=== PATIENT | female | born 1960 | race Caucasian/White ===

== ENCOUNTER 2024-11-27 12:41 | Observation (INO) ==
[2024-11-27 12:52] VITALS: BMI 22.8
[2024-11-27 13:09] LABS: ABG ALLEN TEST POS; ABG BASE EXCESS 5.9 mmol/L (-2.0-2.0); ABG HCO3 29.7 mmol/L (22-26); ABG OXYGEN SATURATION 88.0 % (90-100); ABG PCO2 39.0 mmHg (35.0-45.0); ABG PH 7.490 (7.35-7.45); ABG PO2 49.0 mmHg (80.0-100.0)
[2024-11-27 13:20] LABS: MEAN PLATELET VOLUME 8.7 fL (7.4-11.0); RED CELL DISTRIBUTION WIDTH 14.1 % (11.6-16.5)
[2024-11-27 13:41] LABS: COR CA(FOR HYPOALB) 9.1 mg/dL (8.5-10.1); CREATININE 0.58 mg/dL (0.55-1.02); eGFR NON BLACK RACES > 60 (>60)
[2024-11-27 13:51] LABS: INR 0.97 (0.8-1.3)
--- NOTE | 2024-11-27 14:04 | DR.GENAD ---
HPI Time Seen Time Seen by Provider: 11/27/24 12:59 PCP Primary Care Physician: franca Complaint/Symptoms Chief Complaint Doctors Comments: Patient with complaint of shortness of breath and cough. Patient states he has been going on for about 2 weeks and she has followed up with her PCP and has had to rounds of steroids and treatment. Patient has continued to try smoking but states she has greatly diminished because she gets very short of breath while she tries to smoke and is difficult for her to live a cigarette. Patient denies fever. Chief Complaint:: shourtness of breath and feeling like someone is squeezing around my chest. this was last night. has been coughing up clear foam since for a couple of weeks. this has been ongoing for about 4 weeks. Self Treatment fo Chief Complaint: seen dr. gomez but not improved. states she did not get any lasix from the pharmacy just albuterol COVID-19 Coronavirus risk:travel/contact w/high risk person: No Has patient experienced Coronavirus symptoms: Yes Coronavirus symptoms experienced: Coughing and Shortness of Breath Source History Provided: Patient Mode of Arrival Mode of Arrival: Wheelchair Timing Onset of Chief Complaint: 11/26/24 PMH PMH Past Medical History: Yes Past Medical History: COPD Past Surgical History: Yes Surgical History: Hysterectomy and Ortho Surgery Family History History of Family Medical Conditions: Yes Family Medical History: Diabetes Mellitus, [place], Coronary Artery Disease, Heart Failure and Hypertension Social History Type of Tobacco Use: Cigarettes Alcohol Use: None Do you use any recreational Drugs:: No Lives With: Alone Lives Where: Home Travel Risk Coronavirus risk:travel/contact w/high risk person: No Has patient experienced Coronavirus symptoms: Yes Coronavirus symptoms experienced: Coughing and Shortness of Breath Infectious screening In the last 2 months have you had wt loss of >10#?: NO Have you had fever, night sweats or hemotysis?: No Have you traveled outside the country in the last 6 months?: No Isolation: Respiratory ROS Review of Systems Constitutional: No Symptoms Reported; negative Fever Eyes: No Symptoms Reported ENTM: No Symptoms Reported Respiratoy: See HPI, Non-Productive Cough, Short of Breath and Wheezing Cardiovascular: No Symptoms Reported; negative Chest Pain, Edema, Palpitations or Syncope Gastrointestinal/Abdominal: No Symptoms Reported Genitourinary: No Symptoms Reported Neurological: No Symptoms Reported Musculoskeletal: No Symptoms Reported Integumentary: No Symptoms Reported Hematologic/Lymphatic: No Symptoms Reported Endocrine: No Symptoms Reported Psychiatric: No Symptoms Reported All Other Systems: Reviewed and Negative PE Vital Signs Vitals: Vital Signs Temperature 98.2 F Pulse Rate 86 Pulse Rate 81 Pulse Rate 85 Pulse Rate 87 Pulse Rate 79 Pulse Rate 86 Pulse Rate 81 Pulse Rate 85 Pulse Rate 87 Pulse Rate 83 Pulse Rate 90 Pulse Rate 82 Pulse Rate 83 Pulse Rate 92 Respiratory Rate 39 Respiratory Rate 41 Respiratory Rate 32 Respiratory Rate 34 Respiratory Rate 43 Respiratory Rate 48 Respiratory Rate 44 Respiratory Rate 41 Respiratory Rate 41 Respiratory Rate 40 Respiratory Rate 37 Respiratory Rate 34 Respiratory Rate 24 Blood Pressure 176/81 Blood Pressure 152/74 Blood Pressure 156/80 Blood Pressure 157/85 Blood Pressure 156/76 Blood Pressure 166/80 O2 Sat by Pulse Oximetry 93 O2 Sat by Pulse Oximetry 93 O2 Sat by Pulse Oximetry 93 O2 Sat by Pulse Oximetry 93 O2 Sat by Pulse Oximetry 96 O2 Sat by Pulse Oximetry 96 O2 Sat by Pulse Oximetry 93 O2 Sat by Pulse Oximetry 94 O2 Sat by Pulse Oximetry 94 O2 Sat by Pulse Oximetry 92 O2 Sat by Pulse Oximetry 92 O2 Sat by Pulse Oximetry 89 O2 Sat by Pulse Oximetry 90 O2 Sat by Pulse Oximetry 92 General Limitations: No Limitations General Appearance: Alert and In No Apparent Distress Head Head Exam: Normal Inspection Eyes Eye exam: Normal Appearance ENT ENT Exam: Normal Exam External Ear Exam: Normal External Inspection TM/Canal Exam: Bilateral: Normal Nose Exam: Normal Nose Exam Mouth Exam: Normal Inspection Throat Exam: Normal Inspection Neck Neck Exam: Normal Inspection Chest Chest Inspection: Normal Inspection Respiratory Respiratory Exam: Other (Mild wheezing bilaterally. Slightly diminished on right lower lobe.) Cardiovascular Cardiovascular Exam: Regular Rate and Normal Rhythm Extremities Extremities Exam: Normal Inspection Back Back Exam: Normal Inspection Neurologic Neurological Exam: Alert and Oriented X3 Psychiatric Psychiatric Exam: Normal Affect and Normal Mood Skin Skin Exam: Warm, Dry, Intact and Normal Color COURSE Treatment Treatment: COPD exacerbation with failed outpatient treatment. Discussed results of workup with patient. Patient has been hypoxic and ER but improved with 2 L nasal cannula. Consultation Consultation Comments: Discussed case with Dr. Gomez and he is agreeable to admission. ROR Labs Reviewed Laboratory Results Reviewed?: Yes 11/27/24 13:07 11/27/24 13:07 Laboratory: WBC 14.3 X10^3/uL (3.6-10.0) H 11/27/24 13:07 RBC 4.80 X10^6/uL (3.5-5.4) 11/27/24 13:07 Hgb 13.6 g/dL (12.0-16.0) 11/27/24 13:07 Hct 41.5 % (36.0-47.0) 11/27/24 13:07 MCV 86.5 fL (80.0-100.0) 11/27/24 13:07 MCH 28.4 pg (27.0-34.0) 11/27/24 13:07 MCHC 32.8 g/dL (33.0-35.0) L 11/27/24 13:07 RDW 14.1 % (11.6-16.5) 11/27/24 13:07 Plt Count 260 X10^3/uL (150.0-450.0) 11/27/24 13:07 MPV 8.7 fL (7.4-11.0) 11/27/24 13:07 Neut % (Auto) 83.2 % (42.0-75.0) H 11/27/24 13:07 Lymph % (Auto) 10.0 % (21.0-51.0) L 11/27/24 13:07 Dunn % (Auto) 5.6 % (0.0-13.0) 11/27/24 13:07 Eos % (Auto) 0.5 % (0.9-2.9) L 11/27/24 13:07 Baso % (Auto) 0.7 % (0.2-1.0) 11/27/24 13:07 Neut # (Auto) 11.9 x10^3/uL (2.2-4.8) H 11/27/24 13:07 Lymph # (Auto) 1.4 X10^3/uL (1.3-2.9) 11/27/24 13:07 Dunn # (Auto) 0.8 x10^3/uL (0.3-0.8) 11/27/24 13:07 Eos # (Auto) 0.1 x10^3/uL (0.0-0.2) 11/27/24 13:07 Baso # (Auto) 0.1 X10^3/uL (0.0-0.1) 11/27/24 13:07 Absolute Nucleated RBC 0.0 /100WBC 11/27/24 13:07 PT 13.0 SECONDS (11.8-14.3) 11/27/24 13:07 INR Target Range - 11/27/24 13:07 INR 0.97 (0.8-1.3) 11/27/24 13:07 APTT 28.8 SECONDS (22.9-36.5) 11/27/24 13:07 PTT Comment - 11/27/24 13:07 D-Dimer < 0.27 ug/ml (0.0-0.57) 11/27/24 13:07 Sample Site Lrad 11/27/24 13:05 ABG pH 7.490 (7.35-7.45) H 11/27/24 13:05 ABG pCO2 39.0 mmHg (35.0-45.0) 11/27/24 13:05 ABG pO2 49.0 mmHg (80.0-100.0) L* 11/27/24 13:05 ABG HCO3 29.7 mmol/L (22-26) H 11/27/24 13:05 ABG O2 Saturation 88.0 % (90-100) L 11/27/24 13:05 ABG Base Excess 5.9 mmol/L (-2.0-2.0) H 11/27/24 13:05 Jordan Test Pos 11/27/24 13:05 A-a Gradient 52.0 mmHg 11/27/24 13:05 FiO2 21.0 11/27/24 13:05 Blood Gas Comments Aníbal well ms 11/27/24 13:05 Sodium 141 mmol/L (136-145) 11/27/24 13:07 Corrected Sodium TNP 11/27/24 13:07 Potassium 3.6 mmol/L (3.5-5.1) 11/27/24 13:07 Chloride 104 mmol/L (98-107) 11/27/24 13:07 Carbon Dioxide 33.0 mmol/L (21-32) H 11/27/24 13:07 BUN 13 mg/dL (7-18) 11/27/24 13:07 Creatinine 0.58 mg/dL (0.55-1.02) 11/27/24 13:07 Est GFR (MDRD) Af Amer > 60 (>60) 11/27/24 13:07 Est GFR (MDRD) Non-Af > 60 (>60) 11/27/24 13:07 Glucose 100 mg/dL (65-99) H 11/27/24 13:07 Calcium 8.5 mg/dL (8.5-10.1) 11/27/24 13:07 Corrected Calcium 9.1 mg/dL (8.5-10.1) 11/27/24 13:07 Magnesium 2.1 mg/dL (2.0-2.9) 11/27/24 13:07 Total Bilirubin 0.50 mg/dL (0.2-1.0) 11/27/24 13:07 AST 12 Units/L (15-37) L 11/27/24 13:07 ALT 21 Units/L (12-78) 11/27/24 13:07 Alkaline Phosphatase 117 Units/L (46-116) H 11/27/24 13:07 Troponin I High Sens 6.5 ng/L (4.0-60.0) 11/27/24 13:07 B-Natriuretic Peptide 58.5 pg/mL (0-79) 11/27/24 13:07 Total Protein 7.1 g/dL (6.4-8.2) 11/27/24 13:07 Albumin 3.3 g/dL (3.4-5.0) L 11/27/24 13:07 Globulin 3.8 g/dL (2.5-4.5) 11/27/24 13:07 Albumin/Globulin Ratio 0.9 Ratio (1.1-2.1) L 11/27/24 13:07 Other Results Comments: Name: [facility]#: [id number] : 1960 Sex: F Location: ER Order Number(s): [id number] Procedure(s):CHEST CT W/O CON Ordering Physician: Nilay Helm Primary Care: Francisco Gomez MD Service Date: 11/27/24 Service Time: 1259 EXAM: CT chest without contrast HISTORY: Shortness of breath TECHNIQUE: Axial noncontrast images with coronal and sagittal reformats. Dose reduction procedures were used with mA/kv adjusted for body size. This examination is limited due to the lack of intravenous contrast. The examination was performed unenhanced at the sole direction of the ordering caregiver. Radiology was afforded no input into the method of performance of this examination. COMPARISON: None FINDINGS: Exam ination of the mediastinum demonstrated no evidence for mediastinal mass, enlarged mediastinal or enlarged hilar adenopathy but only to the limitations of an unenhanced examination. Calcific atherosclerotic changes present in a not significantly dilated proximal aortic arch. Heart size is normal. No pleural effusions are identified. No chest wall or axillary abnormalities identified. Those portions of the upper abdominal organs visualized appeared within normal limits to the limitations of an examination performed without intravenous and without oral contrast. There is a suggestion of possible cholelithiasis which could be confirmed or excluded sonographically. Spinal osteopenia is present. There is an old compression fracture of T12. There is a benign hemangiomatous change in L1. Examination of the lung maravilla demonstrated no pulmonary masses, alveolar infiltrates, areas of consolidation, bronchiectasis, or peribronchial thickening. No significant noncalcified pulmonary nodules are identified. 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 THIS IS AN ELECTRONICALLY VERIFIED FINAL REPORT 11/27/2024 2:54 PM - Electronically signed by Rick Schneider MD Opioid Opioid Risk Tool Age (Pankaj box if 16-45): No History of Preadolescent Sexual Abuse: No Total: 0 Total Score Risk Category: Low Risk Copyright: Teddy DOWELL predicting aberrant behaviors Discharge Plan Diagnosis Discharge Problem: COPD with exacerbation, Hypoxia Discharge Plan Patient Disposition: 09 ADMITTED INPATIENT Condition: Stable Prescriptions: No Action ipratropium-albuterol 0.5 mg-3 mg(2.5 mg base)/3 mL solution for nebulization 3 ml inhalation Q4-6H PRN (Reason: wheezing) Qty: 180 2RF furosemide [Lasix] 20 mg tablet 20 mg PO QDAY 5 Days Qty: 5 0RF albuterol sulfate 90 mcg/actuation HFA aerosol inhaler 2 puff inhalation Q4-6H PRN (Reason: shortness of breath or wheezing) Qty: 8.5 3RF Health Concerns: Post Hospitalization: new medications and changes needed to prevent readmission or further decline. Pt educated and given instructions on all concerns. Plan of Treatment: Continue with present treatment and follow up plan. Pt is to keep follow up appointment as instructed and take medications as ordered. Orders to Discharge Patient Discharge Orders: Transfer (Routine); Ordered 11/27/24 Ordered By: Nilay Helm Follow ups/Referrals Follow ups/Referrals: Francisco Gomez MD [Primary Care Provider, MEDICAL] - 3 days Instructions Stand Alone Forms: Find Help Web Site, Post Hospital Follow Up Care Print Language: CHINESE
--- NOTE | 2024-11-27 14:58 | CT ---
EXAM: CT chest without contrast HISTORY: Shortness of breath TECHNIQUE: Axial noncontrast images with coronal and sagittal reformats. Dose reduction procedures were used with mA/kv adjusted for body size. This examination is limited due to the lack of intravenous contrast. The examination was performed unenhanced at the sole direction of the ordering caregiver. Radiology was afforded no input into the method of performance of this examination. COMPARISON: None FINDINGS: Exam ination of the mediastinum demonstrated no evidence for mediastinal mass, enlarged mediastinal or enlarged hilar adenopathy but only to the limitations of an unenhanced examination. Calcific atherosclerotic changes present in a not significantly dilated proximal aortic arch. Heart size is normal. No pleural effusions are identified. No chest wall or axillary abnormalities identified. Those portions of the upper abdominal organs visualized appeared within normal limits to the limitations of an examination performed without intravenous and without oral contrast. There is a suggestion of possible cholelithiasis which could be confirmed or excluded sonographically. Spinal osteopenia is present. There is an old compression fracture of T12. There is a benign hemangiomatous change in L1. Examination of the lung maravilla demonstrated no pulmonary masses, alveolar infiltrates, areas of consolidation, bronchiectasis, or peribronchial thickening. No significant noncalcified pulmonary nodules are identified. 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 THIS IS AN ELECTRONICALLY VERIFIED FINAL REPORT 11/27/2024 2:54 PM - Electronically signed by Rick Schneider MD
[2024-11-27] MEDS: DUONEB 0.5 MG/3 MG (3 mL) NEB ONE ×2 (15:39→17:06)
[2024-11-27] MEDS: LEVAQUIN PREMIX IV 750 MG 750 MG/150 ML BAG IV ONE (15:52)
[2024-11-27] MEDS ORDERED: TYLENOL 325 MG TAB PO PRN (16:53)
[2024-11-27] MEDS ORDERED: ULTRAM PO PRN (16:53)
[2024-11-27] MEDS ORDERED: NORCO 5/325 MG TAB PO PRN (16:53)
[2024-11-27] MEDS: DUONEB 0.5 MG/3 MG (3 mL) NEB SCH (16:54)
[2024-11-27] MEDS ORDERED: DUONEB 0.5 MG/3 MG (3 mL) NEB SCH (17:00)
[2024-11-27] MEDS: PULMICORT NEB TX 0.5 MG NEB SCH (20:26)
[2024-11-27] MEDS: LOVENOX INJ 40 MG SYR SC SCH (21:45)
[2024-11-28] MEDS: PHARMACY CONSULT XX SCH (04:09)
[2024-11-28 04:59] LABS: COR NA(FOR HYPERGLY) 145 mmol/L (136-145); CREATININE 0.79 mg/dL (0.55-1.02); MEAN PLATELET VOLUME 9.3 fL (7.4-11.0); RED CELL DISTRIBUTION WIDTH 14.1 % (11.6-16.5); eGFR NON BLACK RACES > 60 (>60)
[2024-11-28 05:10] LABS: PLATELET MORPHOLOGY COMMENT NORMAL (NORMAL)
--- NOTE | 2024-11-28 07:16 | RAD ---
EXAMINATION: CHEST, 1 VIEW HISTORY: COPD; COPD SX: HYST, ORTHO . COMPARISON STUDY: Chest x-ray 12/19/2021 TECHNIQUE: Single portable AP view of the chest FINDINGS: Subtle patchy alveolar infiltrate left pulmonary base. Heart size and pulmonary vascular pattern appear normal. Bones are intact. Slight curvature thoracic spine convexity toward the right. IMPRESSION: Patchy infiltrate left pulmonary base. THIS IS AN ELECTRONICALLY VERIFIED FINAL REPORT 11/28/2024 7:13 AM - Electronically signed by Gi Gilliam MD
[2024-11-28] MEDS: LASIX PO SCH (09:39)
--- NOTE | 2024-11-28 09:59 | DR.H&P ---
H&P History & Physical for Day of: H&P Date: 11/28/24 Chief Complaint Chief Complaint: cough, dyspnea History of Present Illness History of Present Illness: Patient is a 64-year-old female with a past medical history of COPD presented with worsening respiratory symptoms including shortness of breath and cough. Patient has been treated outpatient for COPD exacerbation for the past few weeks with steroids and antibiotics. She reports worsening symptoms yesterday so came to the ER. ER workup showed hypoxia on ABG with PO2 49. She was initially placed on BiPAP and admitted to the ICU. She was started on IV antibiotics, fluids and Solu-Medrol. She is feeling better this morning. She is currently on 4 L nasal cannula. She does not use oxygen at home. Chest x-ray this morning does show a left-sided pneumonia. Labs/imaging reviewed: - WBC 10.3 hemoglobin 14 potassium 4.1 creatinine 0.79 - Chest x-ray reviewed - AIT pending Plan: Admit to ICU for closer monitoring. Wean O2 as tolerated. BiPAP as needed. Continue IV antibiotics and steroids. Will taper Solu-Medrol to 80 mg Q8. Continue bronchodilators, IS. Resume home medications. Follow pending cultures. Replace electrolytes as per protocol. Monitor a.m. labs and imaging. Time spent for clinical assessment, reviewing labs/imaging, physical exam, decision making and documentation greater than 45 mins. Past Medical History Past Medical History: COPD Past Surgical History Surgical History: Hysterectomy and Ortho Surgery Family History Family Medical History: Diabetes Mellitus, [place], Coronary Artery Disease, Heart Failure and Hypertension Social History Does patient currently use any type of tobacco product: Yes Type of Tobacco Use: Cigarettes Does any household member use tobacco: Yes Alcohol Use: None Drug Use: None Allergies Allergies Allergy/AdvReac Type Severity Reaction Status Date / Time No Known Drug Allergies Allergy Unknown Unverified 11/27/24 16:54 Labs 11/28/24 04:24 11/28/24 04:24 Labs: Laboratory WBC 10.3 X10^3/uL (3.6-10.0) H 11/28/24 04:24 RBC 4.90 X10^6/uL (3.5-5.4) 11/28/24 04:24 Hgb 14.3 g/dL (12.0-16.0) 11/28/24 04:24 Hct 42.2 % (36.0-47.0) 11/28/24 04:24 MCV 86.1 fL (80.0-100.0) 11/28/24 04:24 MCH 29.2 pg (27.0-34.0) 11/28/24 04:24 MCHC 33.9 g/dL (33.0-35.0) 11/28/24 04:24 RDW 14.1 % (11.6-16.5) 11/28/24 04:24 Plt Count 257 X10^3/uL (150.0-450.0) 11/28/24 04:24 Plt Count Comment Adequate (ADEQUATE) 11/28/24 04:24 MPV 9.3 fL (7.4-11.0) 11/28/24 04:24 Neut % (Auto) 95.1 % (42.0-75.0) H 11/28/24 04:24 Lymph % (Auto) 3.8 % (21.0-51.0) L 11/28/24 04:24 Piatt % (Auto) 1.0 % (0.0-13.0) 11/28/24 04:24 Eos % (Auto) 0.0 % (0.9-2.9) L 11/28/24 04:24 Baso % (Auto) 0.1 % (0.2-1.0) L 11/28/24 04:24 Neut # (Auto) 9.8 x10^3/uL (2.2-4.8) H 11/28/24 04:24 Lymph # (Auto) 0.4 X10^3/uL (1.3-2.9) L 11/28/24 04:24 Piatt # (Auto) 0.1 x10^3/uL (0.3-0.8) L 11/28/24 04:24 Eos # (Auto) 0.0 x10^3/uL (0.0-0.2) 11/28/24 04:24 Baso # (Auto) 0.0 X10^3/uL (0.0-0.1) 11/28/24 04:24 Absolute Nucleated RBC 0.1 /100WBC 11/28/24 04:24 Total Counted 100 11/28/24 04:24 Neutrophils % (Manual) 96 % (39-76) H 11/28/24 04:24 Lymphocytes % (Manual) 3 % (13-43) L 11/28/24 04:24 Monocytes % (Manual) 1 % (4-9) L 11/28/24 04:24 Plt Morphology Comment Normal (NORMAL) 11/28/24 04:24 RBC Morphology Normal (NORMAL) 11/28/24 04:24 PT 13.0 SECONDS (11.8-14.3) 11/27/24 13:07 INR Target Range - 11/27/24 13:07 INR 0.97 (0.8-1.3) 11/27/24 13:07 APTT 28.8 SECONDS (22.9-36.5) 11/27/24 13:07 PTT Comment - 11/27/24 13:07 D-Dimer < 0.27 ug/ml (0.0-0.57) 11/27/24 13:07 Sample Site Lrad 11/27/24 13:05 ABG pH 7.490 (7.35-7.45) H 11/27/24 13:05 ABG pCO2 39.0 mmHg (35.0-45.0) 11/27/24 13:05 ABG pO2 49.0 mmHg (80.0-100.0) L* 11/27/24 13:05 ABG HCO3 29.7 mmol/L (22-26) H 11/27/24 13:05 ABG O2 Saturation 88.0 % (90-100) L 11/27/24 13:05 ABG Base Excess 5.9 mmol/L (-2.0-2.0) H 11/27/24 13:05 Jordan Test Pos 11/27/24 13:05 A-a Gradient 52.0 mmHg 11/27/24 13:05 FiO2 21.0 11/27/24 13:05 Blood Gas Comments Aníbal well ms 11/27/24 13:05 Sodium 143 mmol/L (136-145) 11/28/24 04:24 Corrected Sodium 145 mmol/L (136-145) 11/28/24 04:24 Potassium 4.1 mmol/L (3.5-5.1) 11/28/24 04:24 Chloride 105 mmol/L (98-107) 11/28/24 04:24 Carbon Dioxide 32.3 mmol/L (21-32) H 11/28/24 04:24 BUN 13 mg/dL (7-18) 11/28/24 04:24 Creatinine 0.79 mg/dL (0.55-1.02) 11/28/24 04:24 Est GFR (MDRD) Af Amer > 60 (>60) 11/28/24 04:24 Est GFR (MDRD) Non-Af > 60 (>60) 11/28/24 04:24 Glucose 184 mg/dL (65-99) H 11/28/24 04:24 Calcium 8.9 mg/dL (8.5-10.1) 11/28/24 04:24 Corrected Calcium 9.1 mg/dL (8.5-10.1) 11/27/24 13:07 Magnesium 2.1 mg/dL (2.0-2.9) 11/27/24 13:07 Total Bilirubin 0.50 mg/dL (0.2-1.0) 11/27/24 13:07 AST 12 Units/L (15-37) L 11/27/24 13:07 ALT 21 Units/L (12-78) 11/27/24 13:07 Alkaline Phosphatase 117 Units/L (46-116) H 11/27/24 13:07 Troponin I High Sens 6.5 ng/L (4.0-60.0) 11/27/24 13:07 B-Natriuretic Peptide 58.5 pg/mL (0-79) 11/27/24 13:07 Total Protein 7.1 g/dL (6.4-8.2) 11/27/24 13:07 Albumin 3.3 g/dL (3.4-5.0) L 11/27/24 13:07 Globulin 3.8 g/dL (2.5-4.5) 11/27/24 13:07 Albumin/Globulin Ratio 0.9 Ratio (1.1-2.1) L 11/27/24 13:07 Review of Systems Constitutional: Weakness and Malaise Eyes: No Symptoms Reported ENT: No Symptoms Reported Respiratory: Cough, SOB with Excertion and Sputum Cardiovascular: No Symptoms Reported Gastrointestinal: No Symptoms Reported Genitourinary: No Symptoms Reported Musculoskeletal: No Symptoms Reported Skin: No Symptoms Reported Neurological: No Symptoms Reported Physical Exam Vital Signs: Vital Signs Temperature 98.3 F Pulse Rate 69 Pulse Rate 69 Pulse Rate 72 Pulse Rate 70 Pulse Rate 75 Pulse Rate 80 Pulse Rate 73 Blood Pressure 115/58 Blood Pressure 113/59 Blood Pressure 114/62 Blood Pressure 114/56 Blood Pressure 126/62 O2 Sat by Pulse Oximetry 96 O2 Sat by Pulse Oximetry 96 O2 Sat by Pulse Oximetry 94 O2 Sat by Pulse Oximetry 93 O2 Sat by Pulse Oximetry 92 O2 Sat by Pulse Oximetry 90 O2 Sat by Pulse Oximetry 96 Oriented: Normal Throat: Dry Respiratory: Rhonchi Throughout Cardiovascular: Normal Auscultation: Bowel Sounds: Normal Palpation: Normal Tenderness: Normal Skin: Normal Musculoskeletal: Normal Psychiatric: Normal Mood Description: Calm Affect: Normal Speech Pattern: Clear and Appropriate Assessment/Plan (1) Hypoxia: Status: Acute (2) COPD with exacerbation: Status: Acute (3) Pneumonia: Qualifiers: Pneumonia type: due to unspecified organism Laterality: left Lung location: lower lobe of lung Qualified Code(s): J18.9 - Pneumonia, unspecified organism Status: Acute (4) Chronic obstructive pulmonary disease: Qualifiers: COPD type: unspecified COPD Qualified Code(s): J44.9 - Chronic obstructive pulmonary disease, unspecified Status: Chronic (5) Hyperlipidemia: Qualifiers: Hyperlipidemia type: mixed hyperlipidemia Qualified Code(s): E78.2 - Mixed hyperlipidemia Status: Chronic (6) Tobacco use: Status: Chronic Review H&P Reviewed: Yes Patient was examined?: Yes
[2024-11-28] MEDS: LEVAQUIN PREMIX IV 750 MG 750 MG/150 ML BAG IV SCH (15:30)
[2024-11-29 05:09] LABS: MEAN PLATELET VOLUME 9.5 fL (7.4-11.0); RED CELL DISTRIBUTION WIDTH 14.3 % (11.6-16.5)
[2024-11-29 05:21] LABS: COR CA(FOR HYPOALB) 9.5 mg/dL (8.5-10.1); COR NA(FOR HYPERGLY) 144 mmol/L (136-145); CREATININE 0.64 mg/dL (0.55-1.02); eGFR NON BLACK RACES > 60 (>60)
[2024-11-29 05:25] LABS: PLATELET MORPHOLOGY COMMENT NORMAL (NORMAL)
[2024-11-29 07:09] VITALS: TEMP 98.2
[2024-11-29 09:02] VITALS: BP 121/58; PULSE 89; RESP 18; O2SAT 94
--- NOTE | 2024-11-30 11:30 | W.DIS.FURT ---
Summary of Discharge Discharge Summary of Date Date of Exam: 11/29/24 Admission Date Date of Admission: 11/27/24 Admission Diagnosis Patient Problems (Updated 11/28/24 @ 09:58 by Sujatha Gonzalez MD) Hypoxia (Acute) R09.02 COPD with exacerbation (Acute) J44.1 Hospital Course: Patient is a 64-year-old female with a past medical history of COPD presented with worsening respiratory symptoms including shortness of breath and cough. Patient has been treated outpatient for COPD exacerbation for the past few weeks with steroids and antibiotics. She reports worsening symptoms yesterday so came to the ER. ER workup showed hypoxia on ABG with PO2 49. She was initially placed on BiPAP and admitted to the ICU. She was started on IV antibiotics, fluids and Solu-Medrol. She was also on bronchodilators. She was transitioned to 4 L nasal cannula. She does not use oxygen at home. Repeat chest x-ray did show possible pneumonia. Her labs were monitored daily and electrolytes replaced as needed. RT was consulted for home O2 eval, patient did not require any oxygen with ambulation. She was feeling better the following day and wanted to go home. She does have help at home. She did not require home oxygen. AIT showed rhinovirus. She was stable to be discharged home on p.o. antibiotics and steroids. She will follow-up with PCP as scheduled. Vital Signs: Vital Signs (72 hours) 11/27/24 12:45 11/27/24 12:58 11/27/24 13:00 Temperature 98.2 F Pulse Rate 92 H 83 Respiratory Rate 24 34 H Blood Pressure 166/80 156/76 O2 Sat by Pulse Oximetry 92 L 90 L Oxygen Delivery Method Room Air Oxygen Flow Rate FIO2% 11/27/24 13:00 11/27/24 13:15 11/27/24 13:30 Temperature Pulse Rate 82 90 83 Respiratory Rate 37 H 40 H 41 H Blood Pressure O2 Sat by Pulse Oximetry 89 L 92 L 92 L Oxygen Delivery Method Oxygen Flow Rate FIO2% 11/27/24 13:30 11/27/24 13:45 11/27/24 14:10 Temperature Pulse Rate 87 85 Respiratory Rate 41 H Blood Pressure 157/85 O2 Sat by Pulse Oximetry 94 L 94 L Oxygen Delivery Method Oxygen Flow Rate FIO2% 11/27/24 14:15 11/27/24 14:30 11/27/24 14:45 Temperature Pulse Rate 81 86 79 Respiratory Rate 44 H 48 H 43 H Blood Pressure O2 Sat by Pulse Oximetry 93 L 96 96 Oxygen Delivery Method Oxygen Flow Rate FIO2% 11/27/24 14:59 11/27/24 14:59 11/27/24 15:00 Temperature Pulse Rate 87 85 Respiratory Rate 34 H 32 H Blood Pressure 156/80 O2 Sat by Pulse Oximetry 93 L 93 L Oxygen Delivery Method Oxygen Flow Rate FIO2% 11/27/24 15:00 11/27/24 15:15 11/27/24 15:30 Temperature Pulse Rate 81 86 Respiratory Rate 41 H 39 H Blood Pressure 152/74 O2 Sat by Pulse Oximetry 93 L 93 L Oxygen Delivery Method Oxygen Flow Rate FIO2% 11/27/24 15:30 11/27/24 15:47 11/27/24 15:49 Temperature 98.2 F Pulse Rate 86 Respiratory Rate Blood Pressure 176/81 177/74 O2 Sat by Pulse Oximetry 96 Oxygen Delivery Method Oxygen Flow Rate FIO2% 11/27/24 15:49 11/27/24 15:55 11/27/24 16:00 Temperature Pulse Rate 86 Respiratory Rate 25 H Blood Pressure 159/70 O2 Sat by Pulse Oximetry 97 Oxygen Delivery Method Nasal Cannula Oxygen Flow Rate 2 FIO2% 11/27/24 16:00 11/27/24 16:18 11/27/24 16:20 Temperature Pulse Rate 86 89 84 Respiratory Rate 23 22 Blood Pressure O2 Sat by Pulse Oximetry 91 L 92 L 93 L Oxygen Delivery Method Oxygen Flow Rate FIO2% 11/27/24 16:20 11/27/24 16:22 11/27/24 16:30 Temperature Pulse Rate 87 Respiratory Rate 23 Blood Pressure 157/88 O2 Sat by Pulse Oximetry 94 L Oxygen Delivery Method Nasal Cannula Oxygen Flow Rate 2 FIO2% 28 11/27/24 16:45 11/27/24 16:54 11/27/24 17:00 Temperature Pulse Rate 82 93 H 86 Respiratory Rate 22 23 Blood Pressure O2 Sat by Pulse Oximetry 92 L 93 L 99 Oxygen Delivery Method Oxygen Flow Rate FIO2% 11/27/24 17:00 11/27/24 17:00 11/27/24 17:00 Temperature Pulse Rate 86 Respiratory Rate 22 Blood Pressure 155/79 155/79 O2 Sat by Pulse Oximetry 99 Oxygen Delivery Method Oxygen Flow Rate FIO2% 11/27/24 17:15 11/27/24 17:30 11/27/24 17:45 Temperature Pulse Rate 93 H 88 102 H Respiratory Rate 23 21 Blood Pressure O2 Sat by Pulse Oximetry 91 L 92 L 93 L Oxygen Delivery Method Oxygen Flow Rate FIO2% 11/27/24 18:00 11/27/24 18:00 11/27/24 18:00 Temperature Pulse Rate 91 H Respiratory Rate 22 Blood Pressure 130/62 O2 Sat by Pulse Oximetry 94 L Oxygen Delivery Method Nasal Cannula Oxygen Flow Rate 3 FIO2% 32 11/27/24 18:50 11/27/24 18:59 11/27/24 19:00 Temperature Pulse Rate 91 H Respiratory Rate 33 H Blood Pressure 146/67 O2 Sat by Pulse Oximetry 93 L Oxygen Delivery Method Nasal Cannula Nasal Cannula Oxygen Flow Rate 3 3 FIO2% 11/27/24 20:00 11/27/24 20:00 11/27/24 20:28 Temperature 98.2 F Pulse Rate 86 Respiratory Rate 34 H Blood Pressure 149/67 O2 Sat by Pulse Oximetry 90 L Oxygen Delivery Method Nasal Cannula Nasal Cannula Oxygen Flow Rate 3 3 FIO2% 32 11/27/24 20:28 11/27/24 21:00 11/27/24 21:00 Temperature Pulse Rate 83 85 Respiratory Rate Blood Pressure 123/60 O2 Sat by Pulse Oximetry 95 91 L Oxygen Delivery Method Nasal Cannula Oxygen Flow Rate 3 FIO2% 11/27/24 21:32 11/27/24 22:01 11/27/24 22:01 Temperature Pulse Rate 85 Respiratory Rate Blood Pressure 139/64 O2 Sat by Pulse Oximetry 95 Oxygen Delivery Method Nasal Cannula Nasal Cannula Oxygen Flow Rate 4 4 FIO2% 36 11/27/24 23:00 11/27/24 23:00 11/28/24 00:00 Temperature Pulse Rate 74 74 Respiratory Rate Blood Pressure 112/55 O2 Sat by Pulse Oximetry 92 L 93 L Oxygen Delivery Method Nasal Cannula Nasal Cannula Oxygen Flow Rate 4 4 FIO2% 11/28/24 00:00 11/28/24 00:10 11/28/24 01:01 Temperature 98.4 F Pulse Rate 78 Respiratory Rate Blood Pressure 124/58 114/57 O2 Sat by Pulse Oximetry 95 Oxygen Delivery Method Oxygen Flow Rate FIO2% 11/28/24 01:01 11/28/24 02:00 11/28/24 02:00 Temperature Pulse Rate 76 73 Respiratory Rate Blood Pressure 126/62 O2 Sat by Pulse Oximetry 99 96 Oxygen Delivery Method Nasal Cannula Nasal Cannula Oxygen Flow Rate 4 4 FIO2% 11/28/24 03:00 11/28/24 03:00 11/28/24 04:00 Temperature Pulse Rate 80 75 Respiratory Rate Blood Pressure 114/56 O2 Sat by Pulse Oximetry 90 L 92 L Oxygen Delivery Method Nasal Cannula Nasal Cannula Oxygen Flow Rate 4 4 FIO2% 11/28/24 04:00 11/28/24 05:00 11/28/24 05:00 Temperature 98.3 F Pulse Rate 70 Respiratory Rate Blood Pressure 114/62 113/59 O2 Sat by Pulse Oximetry 93 L Oxygen Delivery Method Nasal Cannula Oxygen Flow Rate 4 FIO2% 11/28/24 05:59 11/28/24 06:00 11/28/24 06:00 Temperature Pulse Rate 72 69 Respiratory Rate Blood Pressure 115/58 O2 Sat by Pulse Oximetry 94 L 96 Oxygen Delivery Method Nasal Cannula Oxygen Flow Rate 4 FIO2% 11/28/24 07:00 11/28/24 07:00 11/28/24 07:00 Temperature Pulse Rate 75 Respiratory Rate Blood Pressure 112/63 O2 Sat by Pulse Oximetry 92 L Oxygen Delivery Method Nasal Cannula Oxygen Flow Rate 3 FIO2% 11/28/24 08:00 11/28/24 08:00 11/28/24 09:00 Temperature 98.3 F Pulse Rate 74 71 Respiratory Rate 18 Blood Pressure 114/58 O2 Sat by Pulse Oximetry 93 L 96 Oxygen Delivery Method Oxygen Flow Rate FIO2% 11/28/24 09:00 11/28/24 09:08 11/28/24 09:08 Temperature Pulse Rate 69 Respiratory Rate Blood Pressure 132/62 O2 Sat by Pulse Oximetry 96 Oxygen Delivery Method Nasal Cannula Oxygen Flow Rate 3 FIO2% 32 11/28/24 10:00 11/28/24 10:00 11/28/24 11:00 Temperature Pulse Rate 92 H 89 Respiratory Rate Blood Pressure 123/60 O2 Sat by Pulse Oximetry 92 L 91 L Oxygen Delivery Method Oxygen Flow Rate FIO2% 11/28/24 11:00 11/28/24 12:00 11/28/24 12:00 Temperature 98.3 F Pulse Rate 84 Respiratory Rate 20 Blood Pressure 124/58 125/58 O2 Sat by Pulse Oximetry 92 L Oxygen Delivery Method Oxygen Flow Rate FIO2% 11/28/24 12:40 11/28/24 13:00 11/28/24 13:00 Temperature Pulse Rate 96 H Respiratory Rate Blood Pressure 127/61 O2 Sat by Pulse Oximetry 91 L Oxygen Delivery Method Nasal Cannula Oxygen Flow Rate 2 FIO2% 28 11/28/24 14:00 11/28/24 14:00 11/28/24 15:00 Temperature Pulse Rate 96 H Respiratory Rate Blood Pressure 132/60 133/62 O2 Sat by Pulse Oximetry 100 Oxygen Delivery Method Oxygen Flow Rate FIO2% 11/28/24 15:00 11/28/24 16:00 11/28/24 16:00 Temperature 98.5 F Pulse Rate 109 H 106 H Respiratory Rate Blood Pressure 129/66 O2 Sat by Pulse Oximetry 91 L 95 Oxygen Delivery Method Oxygen Flow Rate FIO2% 11/28/24 17:00 11/28/24 17:00 11/28/24 18:20 Temperature Pulse Rate 93 H 103 H Respiratory Rate Blood Pressure 135/65 O2 Sat by Pulse Oximetry 100 88 L Oxygen Delivery Method Oxygen Flow Rate FIO2% 11/28/24 18:20 11/28/24 19:00 11/28/24 19:00 Temperature Pulse Rate 106 H Respiratory Rate Blood Pressure 124/56 O2 Sat by Pulse Oximetry 91 L Oxygen Delivery Method Nasal Cannula Oxygen Flow Rate 3 FIO2% 11/28/24 19:01 11/28/24 19:01 11/28/24 20:00 Temperature Pulse Rate 104 H 106 H Respiratory Rate Blood Pressure 103/50 O2 Sat by Pulse Oximetry 94 L 92 L Oxygen Delivery Method Oxygen Flow Rate FIO2% 11/28/24 20:01 11/28/24 20:01 11/28/24 20:13 Temperature Pulse Rate 106 H Respiratory Rate Blood Pressure 135/59 O2 Sat by Pulse Oximetry 95 Oxygen Delivery Method Room Air Oxygen Flow Rate FIO2% 11/28/24 20:13 11/28/24 21:00 11/28/24 21:00 Temperature 98.1 F Pulse Rate 99 H 109 H Respiratory Rate Blood Pressure 121/58 O2 Sat by Pulse Oximetry 95 89 L Oxygen Delivery Method Oxygen Flow Rate FIO2% 11/28/24 22:00 11/28/24 22:00 11/28/24 23:00 Temperature Pulse Rate 104 H 95 H Respiratory Rate Blood Pressure 118/57 O2 Sat by Pulse Oximetry 88 L 93 L Oxygen Delivery Method Oxygen Flow Rate FIO2% 11/28/24 23:00 11/29/24 00:00 11/29/24 00:00 Temperature Pulse Rate 89 Respiratory Rate Blood Pressure 116/57 119/58 O2 Sat by Pulse Oximetry 90 L Oxygen Delivery Method Oxygen Flow Rate FIO2% 11/29/24 00:00 11/29/24 00:00 11/29/24 01:00 Temperature 98.4 F Pulse Rate 89 83 Respiratory Rate Blood Pressure 119/58 O2 Sat by Pulse Oximetry 90 L 92 L Oxygen Delivery Method Oxygen Flow Rate FIO2% 11/29/24 01:00 11/29/24 02:00 11/29/24 02:00 Temperature Pulse Rate 87 Respiratory Rate Blood Pressure 109/55 136/68 O2 Sat by Pulse Oximetry 87 L Oxygen Delivery Method Oxygen Flow Rate FIO2% 11/29/24 02:00 11/29/24 02:00 11/29/24 03:00 Temperature Pulse Rate Respiratory Rate Blood Pressure 136/68 136/68 105/59 O2 Sat by Pulse Oximetry Oxygen Delivery Method Oxygen Flow Rate FIO2% 11/29/24 03:00 11/29/24 03:00 11/29/24 04:00 Temperature Pulse Rate 87 83 Respiratory Rate Blood Pressure 105/59 O2 Sat by Pulse Oximetry 90 L 90 L Oxygen Delivery Method Oxygen Flow Rate FIO2% 11/29/24 05:00 11/29/24 05:21 11/29/24 05:21 Temperature 98.2 F Pulse Rate 98 H 98 H Respiratory Rate 18 Blood Pressure 111/58 111/58 O2 Sat by Pulse Oximetry 91 L 91 L Oxygen Delivery Method Oxygen Flow Rate FIO2% 11/29/24 06:00 11/29/24 07:00 11/29/24 07:00 Temperature 98.1 F 98.2 F Pulse Rate 85 94 H Respiratory Rate 20 Blood Pressure 126/68 O2 Sat by Pulse Oximetry 90 L 96 Oxygen Delivery Method Room Air Oxygen Flow Rate FIO2% 11/29/24 08:00 11/29/24 08:45 11/29/24 08:45 Temperature 98.2 F Pulse Rate 85 90 Respiratory Rate 20 Blood Pressure 134/60 O2 Sat by Pulse Oximetry 94 L 93 L Oxygen Delivery Method Room Air Oxygen Flow Rate FIO2% 11/29/24 09:00 Temperature Pulse Rate 89 Respiratory Rate 18 Blood Pressure 121/58 O2 Sat by Pulse Oximetry 94 L Oxygen Delivery Method Oxygen Flow Rate FIO2% Labs: Laboratory Last Values WBC 14.2 X10^3/uL (3.6-10.0) H 11/29/24 04:00 RBC 4.46 X10^6/uL (3.5-5.4) 11/29/24 04:00 Hgb 13.0 g/dL (12.0-16.0) 11/29/24 04:00 Hct 38.8 % (36.0-47.0) 11/29/24 04:00 MCV 86.9 fL (80.0-100.0) 11/29/24 04:00 MCH 29.2 pg (27.0-34.0) 11/29/24 04:00 MCHC 33.6 g/dL (33.0-35.0) 11/29/24 04:00 RDW 14.3 % (11.6-16.5) 11/29/24 04:00 Plt Count 275 X10^3/uL (150.0-450.0) 11/29/24 04:00 Plt Count Comment Adequate (ADEQUATE) 11/29/24 04:00 MPV 9.5 fL (7.4-11.0) 11/29/24 04:00 Neut % (Auto) 93.8 % (42.0-75.0) H 11/29/24 04:00 Lymph % (Auto) 4.3 % (21.0-51.0) L 11/29/24 04:00 [place] % (Auto) 1.8 % (0.0-13.0) 11/29/24 04:00 Eos % (Auto) 0.0 % (0.9-2.9) L 11/29/24 04:00 Baso % (Auto) 0.1 % (0.2-1.0) L 11/29/24 04:00 Neut # (Auto) 13.3 x10^3/uL (2.2-4.8) H 11/29/24 04:00 Lymph # (Auto) 0.6 X10^3/uL (1.3-2.9) L 11/29/24 04:00 [place] # (Auto) 0.2 x10^3/uL (0.3-0.8) L 11/29/24 04:00 Eos # (Auto) 0.0 x10^3/uL (0.0-0.2) 11/29/24 04:00 Baso # (Auto) 0.0 X10^3/uL (0.0-0.1) 11/29/24 04:00 Absolute Nucleated RBC 0.1 /100WBC 11/29/24 04:00 Total Counted 100 11/29/24 04:00 Neutrophils % (Manual) 94 % (39-76) H 11/29/24 04:00 Lymphocytes % (Manual) 4 % (13-43) L 11/29/24 04:00 Monocytes % (Manual) 2 % (4-9) L 11/29/24 04:00 Plt Morphology Comment Normal (NORMAL) 11/29/24 04:00 RBC Morphology Normal (NORMAL) 11/29/24 04:00 PT 13.0 SECONDS (11.8-14.3) 11/27/24 13:07 INR Target Range - 11/27/24 13:07 INR 0.97 (0.8-1.3) 11/27/24 13:07 APTT 28.8 SECONDS (22.9-36.5) 11/27/24 13:07 PTT Comment - 11/27/24 13:07 D-Dimer < 0.27 ug/ml (0.0-0.57) 11/27/24 13:07 Sample Site Lrad 11/27/24 13:05 ABG pH 7.490 (7.35-7.45) H 11/27/24 13:05 ABG pCO2 39.0 mmHg (35.0-45.0) 11/27/24 13:05 ABG pO2 49.0 mmHg (80.0-100.0) L* 11/27/24 13:05 ABG HCO3 29.7 mmol/L (22-26) H 11/27/24 13:05 ABG O2 Saturation 88.0 % (90-100) L 11/27/24 13:05 ABG Base Excess 5.9 mmol/L (-2.0-2.0) H 11/27/24 13:05 Jordan Test Pos 11/27/24 13:05 A-a Gradient 52.0 mmHg 11/27/24 13:05 FiO2 21.0 11/27/24 13:05 Blood Gas Comments Aníbal well ms 11/27/24 13:05 Sodium 143 mmol/L (136-145) 11/29/24 04:00 Corrected Sodium 144 mmol/L (136-145) 11/29/24 04:00 Potassium 4.2 mmol/L (3.5-5.1) 11/29/24 04:00 Chloride 107 mmol/L (98-107) 11/29/24 04:00 Carbon Dioxide 30.7 mmol/L (21-32) 11/29/24 04:00 BUN 25 mg/dL (7-18) H 11/29/24 04:00 Creatinine 0.64 mg/dL (0.55-1.02) 11/29/24 04:00 Est GFR (MDRD) Af Amer > 60 (>60) 11/29/24 04:00 Est GFR (MDRD) Non-Af > 60 (>60) 11/29/24 04:00 Glucose 133 mg/dL (65-99) H 11/29/24 04:00 Calcium 8.5 mg/dL (8.5-10.1) 11/29/24 04:00 Corrected Calcium 9.5 mg/dL (8.5-10.1) 11/29/24 04:00 Magnesium 2.1 mg/dL (2.0-2.9) 11/27/24 13:07 Total Bilirubin 0.10 mg/dL (0.2-1.0) L 11/29/24 04:00 AST 9 Units/L (15-37) L 11/29/24 04:00 ALT 18 Units/L (12-78) 11/29/24 04:00 Alkaline Phosphatase 100 Units/L (46-116) 11/29/24 04:00 Troponin I High Sens 6.5 ng/L (4.0-60.0) 11/27/24 13:07 B-Natriuretic Peptide 58.5 pg/mL (0-79) 11/27/24 13:07 Total Protein 6.6 g/dL (6.4-8.2) 11/29/24 04:00 Albumin 2.7 g/dL (3.4-5.0) L 11/29/24 04:00 Globulin 3.9 g/dL (2.5-4.5) 11/29/24 04:00 Albumin/Globulin Ratio 0.7 Ratio (1.1-2.1) L 11/29/24 04:00 Resp Viral Panel (PCR) See scanned report 11/28/24 10:35 Reason For Visit: COPD EXACERBATION Discharge Diagnosis All Active Problems (Updated 11/28/24 @ 09:58 by Sujatha Gonzalez MD) Pneumonia (Acute) Tobacco use (Chronic) Hypoxia (Acute) Bacterial sinusitis (Acute) COPD with exacerbation (Acute) COVID (Acute) Fracture of proximal phalanx of finger of right hand (Acute) Chronic obstructive pulmonary disease (Chronic) Hyperlipidemia (Chronic) Plan of Treatment: Continue with present treatment and follow up plan. Pt is to keep follow up appointment as instructed and take medications as ordered. Discharge Medications Discharge Medications: No Known Drug Allergies Allergy (Unknown, Unverified 11/27/24 16:54) New Prescriptions levofloxacin 750 mg tablet 750 mg PO QDAY 7 days #7 tabs 11/29/24 [Rx] prednisone 20 mg tablet 20 mg PO BID 5 days #10 tabs 11/29/24 [Rx] Discharge Disposition Discharge Disposition: To home Discharge Condition: Stable Discharge Plan Discharge Plan Hospital Course: Patient is a 64-year-old female with a past medical history of COPD presented with worsening respiratory symptoms including shortness of breath and cough. Patient has been treated outpatient for COPD exacerbation for the past few weeks with steroids and antibiotics. She reports worsening symptoms yesterday so came to the ER. ER workup showed hypoxia on ABG with PO2 49. She was initially placed on BiPAP and admitted to the ICU. She was started on IV antibiotics, fluids and Solu-Medrol. She was also on bronchodilators. She was transitioned to 4 L nasal cannula. She does not use oxygen at home. Repeat chest x-ray did show possible pneumonia. Her labs were monitored daily and electrolytes replaced as needed. RT was consulted for home O2 eval, patient did not require any oxygen with ambulation. She was feeling better the following day and wanted to go home. She does have help at home. She did not require home oxygen. AIT showed rhinovirus. She was stable to be discharged home on p.o. antibiotics and steroids. She will follow-up with PCP as scheduled. Patient Disposition: HOME HEALTH SERVICE Condition: Stable Health Concerns: Post Hospitalization: new medications and changes needed to prevent readmission or further decline. Pt educated and given instructions on all concerns. Care Plan Goals: Problem: Respiratory Complications Goal: Improved Uncomplicated Respiratory Status Instructions: Follow provided instructions. Follow up with primary physician as directed. Contact primary care physician or report to the closest Emergency Room if condition worsens. Plan of Treatment: Continue with present treatment and follow up plan. Pt is to keep follow up appointment as instructed and take medications as ordered. Prescription drug monitoring program results: PDMP reviewed and no concerns identified Prescriptions: New prednisone 20 mg tablet 20 mg PO BID 5 Days Qty: 10 0RF levofloxacin 750 mg tablet 750 mg PO QDAY 7 Days Qty: 7 0RF Continued ipratropium-albuterol 0.5 mg-3 mg(2.5 mg base)/3 mL solution for nebulization 3 ml inhalation Q4-6H PRN (Reason: wheezing) Qty: 180 2RF furosemide [Lasix] 20 mg tablet 20 mg PO QDAY 5 Days Qty: 5 0RF albuterol sulfate 90 mcg/actuation HFA aerosol inhaler 2 puff inhalation Q4-6H PRN (Reason: shortness of breath or wheezing) Qty: 8.5 3RF Follow ups/Referrals Follow ups/Referrals: Francisco Gomez MD [Primary Care Provider, MEDICAL] - 12/06/24 1:50 pm Instructions Instructions: Hypoxia, Chronic Obstructive Pulmonary Disease Exacerbation, Community-Acquired Pneumonia, Adult, [id number] Stand Alone Forms: Find Help Web Site, [facility] Follow Up Care Print Language: PORTUGUESE
== END 2024-11-29 10:45 | disposition home health service (06) ==
LOC: ICU 12:41 → ER 12:41 → ICU 16:15
PROVIDERS: ADMIT Family Medicine; ATTEND Family Medicine